=== PATIENT | female | born 1970 | race Caucasian/White ===

== ENCOUNTER 2017-11-18 17:51 | Emergency (ER) | payer OTHER ==
[~2017-11-18] VITALS: Ht 170.2 cm; Wt 68.7 kg
[2017-11-18] MEDS ORDERED: ULTRACET1 TABLET PO (19:52)
[2017-11-18] MEDS ORDERED: MOTRIN800 MG PO (19:52)
[2017-11-18] MEDS ORDERED: VALIUM5 MG PO (19:55)
[2017-11-18 20:05] VITALS: BP 141/77
== END 2017-11-18 20:06 | disposition home or self-care (01) ==
LOC: EME 17:51
DX: S39.012A Strain of muscle, fascia and tendon of lower back, initial encounter (principal); S60.221A Contusion of right hand, initial encounter; S50.11XA Contusion of right forearm, initial encounter; S70.01XA Contusion of right hip, initial encounter; M54.41 Lumbago with sciatica, right side; G89.29 Other chronic pain; V43.52XA Car driver injured in collision with other type car in traffic accident, initial encounter; Y92.410 Unspecified street and highway as the place of occurrence of the external cause
CPT/HCPCS: 72100; 73090; 73130; 73502; 99281; 99283